=== PATIENT | female | born 1960 | race Caucasian/White ===

== ENCOUNTER 2019-05-14 20:19 | Emergency (ER) | payer OTHER ==
[~2019-05-14] VITALS: Ht 154.9 cm; Wt 71.8 kg
[2019-05-14 20:35] VITALS: Ht 154.9 cm; Wt 71.8 kg
[2019-05-14 23:09] VITALS: BP 102/55
== END 2019-05-14 23:09 | disposition home or self-care (01) ==
LOC: ED 20:19
DX: S92.502A Displaced unspecified fracture of left lesser toe(s), initial encounter for closed fracture (principal); X58.XXXA Exposure to other specified factors, initial encounter; Y93.89 Activity, other specified; Y92.89 Other specified places as the place of occurrence of the external cause; Y99.8 Other external cause status
CPT/HCPCS: Q0092